=== PATIENT | male | born 1960 | race Caucasian/White ===

== ENCOUNTER 2022-09-11 13:53 | Emergency (ER) | payer OTHER, BC ==
[2022-09-11 14:00] VITALS: BP 123/80; PULSE 57; RESP 18; TEMP 97.9; BMI 22.8
[2022-09-11 16:00] LABS: SYPHILIS W/ RPR CONF NON-REACTIVE (NONREACTIVE)
[2022-09-11 16:28] LABS: HIV INTERPRETATION NEGATIVE (NEGATIVE)
== END 2022-09-11 15:15 | disposition home or self-care (01) ==
LOC: JERFT 13:53
DX: S61.234A Puncture wound without foreign body of right ring finger without damage to nail, initial encounter (principal); W46.1XXA Contact with contaminated hypodermic needle, initial encounter
CPT/HCPCS: 36415; 86704; 86780; 86803; 87340; 87389; 87517; 99283-25